=== PATIENT | male | born 1990 | race Caucasian/White ===

== ENCOUNTER 2021-11-19 13:06 | Emergency (ER) | payer OTHER, SELFPAY ==
--- NOTE | ~2021-11-19 | XR_ITS ---
XR elbow LT min 3V DATE: 11/19/2021 13:34 INDICATION: Posterior pain, lump TECHNIQUE: 4 views COMPARISON: None FINDINGS: No fracture or dislocation or joint effusion. No periosteal reaction or bone destruction. J oint spaces are preserved. IMPRESSION: No significant abnormality Reviewed, dictated and finalized at location B. ADER IMPRESSION: No significant abnormality
[2021-11-19 13:17] VITALS: BP 148/96; PULSE 87; RESP 18; TEMP 36.8; O2SAT 99
--- NOTE | 2021-11-19 13:34 | PC.NURSE ---
PT DECLINED ICE FOR COMFORT
--- NOTE | 2021-11-19 14:13 | ED.UPPEXIN ---
HPI - Extremity Injury (Upper) General Chief Complaint: Extremity Injury, Upper Stated Complaint: Elbow Injury Time Seen by Provider: 11/19/21 14:01 Source: patient and RN notes reviewed Mode of arrival: ambulatory Limitations: no limitations History of Present Illness HPI narrative: Patient presents today complaining of bruising to his left elbow area. He was at work yesterday leaning on his left forearm/elbow area, shifted his weight onto the elbow and felt a pop. He immediately saw bruising to the area and had some severe pain. This morning his pain has completely resolved and he has no lasting effects except for some tenderness with touching the area of bruising. Denies numbness or tingling. He is currently pain-free. He has tried no [id number] interventions for pain prior to arrival. MD complaint: injury to: elbow and forearm Related Data Home Medications Medication Instructions Recorded Confirmed No Home Medications 11/19/21 11/19/21 Allergies Allergy/AdvReac Type Severity Reaction Status Date / Time No Known Allergies Allergy Verified 11/19/21 13:22 Review of Systems Review of Systems: CONSTITUTIONAL: Denies body aches, fever, chills, or sweats. EYES: Denies visual changes, redness, or discharge. ENT: Denies rhinorrhea, congestion, sore throat, or otalgia. CARDIOVASCULAR: Denies chest pain, palpitations, or edema. RESPIRATORY: Denies cough or dyspnea. GASTROINTESTINAL: Denies abdominal pain, nausea, vomiting, or diarrhea. GENITOURINARY: Denies dysuria or hematuria. SKIN: Denies rash, itching, or wounds. MUSCULOSKELETAL: Denies back pain,or myalgia.+ Left elbow injury NEUROLOGIC: Denies headache, numbness, tingling, or weakness. PSYCH: Denies depression or anxiety. PMFSH Comments At time of signature, I have reviewed and agree with nursing past medical, surgical, social and family history unless otherwise noted. Please see nursing chart for further information. There is no relevant family history pertinent to the presenting complaint Exam Narrative: GENERAL: Well-appearing, well-nourished, and in no acute distress. HEAD: Normocephalic, atraumatic. EYES: EOMI. No redness or drainage. Conjunctivae normal. ENT: Mucous membranes pink and moist. NECK: Normal AROM. CHEST: No respiratory distress. EXTREMITIES: Left elbow: Patient has a dime sized area of mild ecchymosis just proximal to the olecranon process that is mildly tender to palpation. Other than this, there is no abnormalities noted. Patient has full AROM of the elbow without increased pain. No erythema or induration. Distal sensation intact. Capillary refill normal. Radial pulse normal. SKIN: Warm, dry, no rash. Capillary refill normal. Normal skin turgor. NEURO: No focal deficits. Alert and oriented x3. Gait steady. PSYCH: Normal affect. No signs of depression or anxiety. Course Vital Signs Vital signs: Vital Signs Temperature 98.2 F 11/19/21 13:17 Pulse Rate 87 11/19/21 13:17 Respiratory Rate 18 11/19/21 13:17 Blood Pressure 148/96 H 11/19/21 13:17 Pulse Oximetry 99 11/19/21 13:17 Temperature 98.2 F 11/19/21 13:17 Pulse Rate 87 11/19/21 13:17 Respiratory Rate 18 11/19/21 13:17 Blood Pressure 148/96 H 11/19/21 13:17 Pulse Oximetry 99 11/19/21 13:17 Reviewed. Pt has been instructed to follow up with his PCP regarding his elevated blood pressure today. MDM - Extremity Injury (Upper) Differential Diagnosis Differential diagnosis: Likely other (Left elbow fracture, contusion) Imaging Data Radiologist's impression: ITS Impressions Elbow X-Ray 11/19/21 13:35 IMPRESSION: No significant abnormality Critical Care Time Critical Care Time Critical Care Time: No Discharge Plan Discharge Clinical Impression: Contusion of elbow, left Qualifiers: Encounter type: initial encounter Qualified Code(s): S50.02XA - Contusion of left elbow, initial encounter Patient Dis
== END 2021-11-19 14:22 | disposition home or self-care (01) ==
PROVIDERS: Emergency Provider Nurse Practitioner
DX: S50.02XA Contusion of left elbow, initial encounter (principal); X50.0XXA Overexertion from strenuous movement or load, initial encounter; Y99.0 Civilian activity done for income or pay
CPT/HCPCS: 73080; 99213; G0463